=== PATIENT | female | born 2000 | race American Indian/Alaskan Native ===

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

== ENCOUNTER 2019-01-31 23:18 | Emergency (ER) | payer MEDICAID ==
[2019-02-01 00:27] LABS: Amorphous Crystals,Urine 1+; Bilirubin,Urine NEG (Negative); Blood,Urine NEG (Negative); Color,Urine Yellow (Yellow); Mucus,Urine 1+ /HPF; Protein,Urine <15 mg/dL mg/dL (Negative)
[2019-02-01 00:29] LABS: RBC,Urine < 1.0 /HPF (0.0-6.0)
[2019-02-01 00:51] LABS: Basophils # (Auto) 0.1 K/mm3 (0.0-0.1); Basophils % (Auto) 0.8 % (0.0-1.8); Eosinophils # (Auto) 0.6 K/mm3 (0.0-0.4); Eosinophils % (Auto) 7.3 % (0.0-4.3); Hemoglobin 12.2 gm/dl (10.1-14.3); Lymphocytes # (Auto) 2.1 K/mm3 (1.2-5.4); Lymphocytes % (Auto) 26.2 % (13.4-35.0); Mean Corpuscular HGB Conc 33 % (30-34); Mean Corpuscular Volume 85 fl (79-97); Monocytes # (Auto) 0.4 K/mm3 (0.0-0.8); Monocytes % (Auto) 5.4 % (0.0-7.3); Platelet Count 170 K/mm3 (140-440); Red Blood Count 4.35 M/mm3 (3.65-5.03); Red Cell Distribution Width 17.2 % (13.2-15.2)
[2019-02-01 01:06] LABS: Alanine Aminotransferase 13 units/L (7-56); Albumin 4.1 g/dL (3.9-5); BUN/Creatinine Ratio 30; Blood Urea Nitrogen 18 mg/dL (7-17); Calcium 9.1 mg/dL (8.4-10.2); Hemolysis Index 41
--- NOTE | 2019-02-01 01:45 | Emergency Department Report ---
ED Female HPI - General Chief complaint: Abdominal Pain Stated complaint: ABD PAIN/DEHYDRATION Time Seen by Provider: 02/01/19 01:24 Source: patient Mode of arrival: Ambulatory Limitations: No Limitations - History of Present Illness Initial comments: Patient is a 18-year-old female who presents to the emergency room with complaints of suprapubic abdominal pain that began yesterday. she has associated urinary frequency and nausea. she denies any dysuria, vomiting, diarrhea, fever. She had a normal bowel movement today. Patient does not report any vaginal discharge or vaginal complaints. LNMP January 17. Denies any past medical history or allergies to medications. - Related Data Previous Rx's Medication Instructions Recorded Last Taken Type Ondansetron [Zofran Odt] 4 mg PO Q8HR PRN #10 tab.rapdis 02/01/19 Unknown Rx Phenazopyridine [Pyridium] 200 mg PO BID PRN #10 tab 02/01/19 Unknown Rx cephALEXin [Keflex] 500 mg PO BID 7 Days #14 cap 02/01/19 Unknown Rx Allergies Allergy/AdvReac Type Severity Reaction Status Date / Time No Known Allergies Allergy Verified 08/26/18 10:36 ED Review of Systems ROS: Stated complaint: ABD PAIN/DEHYDRATION Other details as noted in HPI Comment: All other systems reviewed and negative ED Past Medical Hx - Past Medical History Previous Medical History?: No Hx Hypertension: No Hx Diabetes: No Hx Deep Vein Thrombosis: No Hx Renal Disease: No Hx Sickle Cell Disease: No Hx Seizures: No Hx Asthma: No Hx HIV: No - Surgical History Past Surgical History?: No - Social History Smoking Status: Current Every Day Smoker Substance Use Type: None - Medications Home Medications: Home Medications Medication Instructions Recorded Confirmed Last Taken Type Ondansetron [Zofran Odt] 4 mg PO Q8HR PRN #10 tab.rapdis 02/01/19 Unknown Rx Phenazopyridine [Pyridium] 200 mg PO BID PRN #10 tab 02/01/19 Unknown Rx cephALEXin [Keflex] 500 mg PO BID 7 Days #14 cap 02/01/19 Unknown Rx ED Physical Exam - General Limitations: No Limitations General appearance: alert, in no apparent distress - Head Head exam: Present: atraumatic, normocephalic - Eye Eye exam: Present: normal appearance - ENT ENT exam: Present: mucous membranes moist - Respiratory Respiratory exam: Present: normal lung sounds bilaterally. Absent: respiratory distress, wheezes, rales, rhonchi, stridor, chest wall tenderness, accessory muscle use, decreased breath sounds, prolonged expiratory - Cardiovascular Cardiovascular Exam: Present: regular rate, normal rhythm, normal heart sounds. Absent: systolic murmur, diastolic murmur, rubs, gallop - GI/Abdominal GI/Abdominal exam: Present: soft, normal bowel sounds. Absent: distended, tenderness, guarding, rebound, rigid - Back Exam Back exam: Absent: CVA tenderness (R), CVA tenderness (L) - Neurological Exam Neurological exam: Present: alert, oriented X3 - Psychiatric Psychiatric exam: Present: normal affect, normal mood - Skin Skin exam: Present: warm, dry, intact ED Course Vital Signs 02/01/19 02/01/19 02:39 02:41 Temperature 98.1 F 98.1 F Pulse Rate 90 90 Respiratory 16 16 Rate Blood Pressure 110/74 114/74 [Right] O2 Sat by Pulse 99 99 Oximetry ED Medical Decision Making - Lab Data Result diagrams: 02/01/19 00:05 02/01/19 00:05 Lab Results 02/01/19 02/01/19 02/01/19 Range/Units 00:05 00:05 00:05 WBC 8.0 (4.5-11.0) K/mm3 RBC 4.35 (3.65-5.03) M/mm3 Hgb 12.2 (10.1-14.3) gm/dl Hct 37.0 (30.3-42.9) % MCV 85 (79-97) fl MCH 28 (28-32) pg MCHC 33 (30-34) % RDW 17.2 H (13.2-15.2) % Plt Count 170 (140-440) K/mm3 Lymph % (Auto) 26.2 (13.4-35.0) % [place] % (Auto) 5.4 (0.0-7.3) % Eos % (Auto) 7.3 H (0.0-4.3) % Baso % (Auto) 0.8 (0.0-1.8) % Lymph # 2.1 (1.2-5.4) K/mm3 [place] # 0.4 (0.0-0.8) K/mm3 Eos # 0.6 H (0.0-0.4) K/mm3 Baso # 0.1 (0.0-0.1) K/mm3 Seg Neutrophils % 60.3 (40.0-70.0) % Seg Neutrophils # 4.8 (1.8-7.7) K/mm3 Sodium 140 (137-145) mmol/L Potassium 4.1 (3.6-5.0) mmol/L Chloride 104.3 (98-107) mmol/L Carbon Dioxide 25 (22-30) mmol/L Anion Gap 15 mmol/L BUN 18 H (7-17) mg/dL Creatinine 0.6 L (0.7-1.2) mg/dL Estimated GFR > 60 ml/min BUN/Creatinine Ratio 30 % Glucose 97 (65-100) mg/dL Calcium 9.1 (8.4-10.2) mg/dL Total Bilirubin 0.40 (0.1-1.2) mg/dL AST 20 (5-40) units/L ALT 13 (7-56) units/L Alkaline Phosphatase 47 (35-129) units/L Total Protein 6.4 (6.3-8.2) g/dL Albumin 4.1 (3.9-5) g/dL Albumin/Globulin Ratio 1.8 % HCG, Qual (Negative) Urine Color Yellow (Yellow) Urine Turbidity Cloudy (Clear) Urine pH 8.0 H (5.0-7.0) Ur Specific [place] 1.024 (1.003-1.030) Urine Protein <15 mg/dl (Negative) mg/dL Urine Glucose (UA) Neg (Negative) mg/dL Urine Ketones Neg (Negative) mg/dL Urine Blood Neg (Negative) Urine Nitrite Neg (Negative) Urine Bilirubin Neg (Negative) Urine Urobilinogen 2.0 (<2.0) mg/dL Ur Leukocyte Esterase Mod (Negative) Urine WBC (Auto) 39.0 H (0.0-6.0) /HPF Urine RBC (Auto) < 1.0 (0.0-6.0) /HPF U Epithel Cells (Auto) 5.0 (0-13.0) /HPF Amorphous Crystals 1+ Urine Mucus 1+ /HPF Urine Yeast (Budding) 1+ /HPF 02/01/19 Range/Units 00:05 WBC (4.5-11.0) K/mm3 RBC (3.65-5.03) M/mm3 Hgb (10.1-14.3) gm/dl Hct (30.3-42.9) % MCV (79-97) fl MCH (28-32) pg MCHC (30-34) % RDW (13.2-15.2) % Plt Count (140-440) K/mm3 Lymph % (Auto) (13.4-35.0) % [place] % (Auto) (0.0-7.3) % Eos % (Auto) (0.0-4.3) % Baso % (Auto) (0.0-1.8) % Lymph # (1.2-5.4) K/mm3 [place] # (0.0-0.8) K/mm3 Eos # (0.0-0.4) K/mm3 Baso # (0.0-0.1) K/mm3 Seg Neutrophils % (40.0-70.0) % Seg Neutrophils # (1.8-7.7) K/mm3 Sodium (137-145) mmol/L Potassium (3.6-5.0) mmol/L Chloride (98-107) mmol/L Carbon Dioxide (22-30) mmol/L Anion Gap mmol/L BUN (7-17) mg/dL Creatinine (0.7-1.2) mg/dL Estimated GFR ml/min BUN/Creatinine Ratio % Glucose (65-100) mg/dL Calcium (8.4-10.2) mg/dL Total Bilirubin (0.1-1.2) mg/dL AST (5-40) units/L ALT (7-56) units/L Alkaline Phosphatase (35-129) units/L Total Protein (6.3-8.2) g/dL Albumin (3.9-5) g/dL Albumin/Globulin Ratio % HCG, Qual Negative (Negative) Urine Color (Yellow) Urine Turbidity (Clear) Urine pH (5.0-7.0) Ur Specific [place] (1.003-1.030) Urine Protein (Negative) mg/dL Urine Glucose (UA) (Negative) mg/dL Urine Ketones (Negative) mg/dL Urine Blood (Negative) Urine Nitrite (Negative) Urine Bilirubin (Negative) Urine Urobilinogen (<2.0) mg/dL Ur Leukocyte Esterase (Negative) Urine WBC (Auto) (0.0-6.0) /HPF Urine RBC (Auto) (0.0-6.0) /HPF U Epithel Cells (Auto) (0-13.0) /HPF Amorphous Crystals Urine Mucus /HPF Urine Yeast (Budding) /HPF - Medical Decision Making Patient is a 18-year-old female who presents to the emergency room with complaints of suprapubic abdominal pain that began yesterday. she has associated urinary frequency and nausea. she denies any dysuria, vomiting, diarrhea, fever. She had a normal bowel movement today. Patient does not report any vaginal discharge or vaginal complaints. LNMP January 17. Denies any past medical history or allergies to medications. no abd tenderness on exam. pt is tolerating PO intake. pt is afebrile. labs WNL. UA shows evidence of UTI. pt given prescription for abx, pyridium, and zofran. advised pt to drink plenty of water. take medication as prescribed. follow up with a primary care doctor in the next 2-3 days. return to the emergency room for any new or worsening symptoms. Critical care attestation.: If time is entered above; I have spent that time in minutes in the direct care of this critically ill patient, excluding procedure time. ED Disposition Clinical Impression: Suprapubic abdominal pain UTI (urinary tract infection) Qualifiers: Urinary tract infection type: acute cystitis Hematuria presence: without hematuria Qualified Code(s): N30.00 - Acute cystitis without hematuria Disposition: TO HOME OR SELFCARE Is pt being admited?: No Does the pt Need Aspirin: No Condition: Stable Instructions: Urinary Tract Infection in Women (ED) Additional Instructions: drink plenty of water. take medication as prescribed. follow up with a primary care doctor in the next 2-3 days. return to the emergency room for any new or worsening symptoms. Prescriptions: cephALEXin [Keflex] 500 mg PO BID 7 Days #14 cap Phenazopyridine [Pyridium] 200 mg PO BID PRN #10 tab PRN Reason: pain Ondansetron [Zofran Odt] 4 mg PO Q8HR PRN #10 tab.rapdis PRN Reason: Nausea Referrals: [facility] [Provider Group] - 2-3 Days [facility] [Outside] - 2-3 Days [facility] [Outside] - 2-3 Days Forms: Work/School Release Form(ED) Time of Disposition: 01:45 Print Language: SETSWANA
[2019-02-01 02:42] VITALS: BP 114/74
== END 2019-02-01 02:40 | disposition home or self-care (01) ==
LOC: ED 23:18
DX: N39.0 Urinary tract infection, site not specified (principal); F17.200 Nicotine dependence, unspecified, uncomplicated; Z79.899 Other long term (current) drug therapy
CPT/HCPCS: 36415; 80053; 81001; 84703; 85025; 87086; 99283

== ENCOUNTER 2019-03-22 18:09 | Emergency (ER) | payer MEDICAID ==
[2019-03-22 19:01] VITALS: BP 100/73
[2019-03-22] MEDS ORDERED: TYLENOL #3 PO ONE (21:19)
[2019-03-22] MEDS ORDERED: IBUPROFEN PO ONE (21:19)
--- NOTE | 2019-03-22 21:24 | Emergency Department Report ---
ED General Adult HPI - General Chief complaint: Dental/Oral Stated complaint: TONGUE PAIN Source: patient Mode of arrival: Ambulatory Limitations: No Limitations - History of Present Illness Initial comments: Patient is a 18-year-old female with no past medical history presents to the ED with complaint of acute onset painful abrasion of the tongue and mouth for 2 days after she accidentally removed tongue piercing which ended up passing abrasion of the frenulum of the tongue. Chin denies fever, chills, nausea, vomiting, headache, chest pain, shortness of breath or sore throat. MD Complaint: intraoral abrasion and pain; tongue abrasion -: Sudden, days(s) (2) Location: mouth Radiation: non-radiation Severity scale (0 -10): 6 Quality: aching, sharp Consistency: constant Improves with: none Worsens with: none Associated Symptoms: denies other symptoms. denies: confusion, chest pain, cough, diaphoresis, fever/chills, headaches, loss of appetite, malaise, nausea/vomiting, rash, seizure, shortness of breath, syncope Treatments Prior to Arrival: none - Related Data Previous Rx's Medication Instructions Recorded Last Taken Type Ondansetron [Zofran Odt] 4 mg PO Q8HR PRN #10 tab.rapdis 02/01/19 Unknown Rx Phenazopyridine [Pyridium] 200 mg PO BID PRN #10 tab 02/01/19 Unknown Rx Benzonatate [Tessalon Perles] 100 mg PO Q8HR PRN #20 capsule 02/08/19 Unknown Rx Naproxen [Naprosyn] 500 mg PO BID #20 tablet 02/08/19 Unknown Rx Ondansetron [Zofran Odt] 4 mg PO Q8HR PRN #20 tab.rapdis 02/08/19 Unknown Rx Ibuprofen [Motrin] 600 mg PO Q8H PRN #20 tablet 03/22/19 Unknown Rx cephALEXin [Keflex] 500 mg PO Q8HR #30 cap 03/22/19 Unknown Rx Allergies Allergy/AdvReac Type Severity Reaction Status Date / Time No Known Allergies Allergy Verified 02/08/19 18:49 ED Review of Systems ROS: Stated complaint: TONGUE PAIN Other details as noted in HPI Constitutional: denies: chills, fever Eyes: denies: eye pain, eye discharge, vision change ENT: other (tongue pain due to abrasions). denies: ear pain, throat pain Respiratory: denies: cough, shortness of breath, wheezing Cardiovascular: denies: chest pain, palpitations Endocrine: no symptoms reported Gastrointestinal: denies: abdominal pain, nausea, diarrhea Genitourinary: denies: urgency, dysuria, discharge Musculoskeletal: denies: back pain, joint swelling, arthralgia Skin: denies: rash, lesions Neurological: denies: headache, weakness, paresthesias Psychiatric: denies: anxiety, depression Hematological/Lymphatic: denies: easy bleeding, easy bruising ED Past Medical Hx - Past Medical History Hx Hypertension: No Hx Diabetes: No Hx Deep Vein Thrombosis: No Hx Renal Disease: No Hx Sickle Cell Disease: No Hx Seizures: No Hx Asthma: No Hx HIV: No - Social History Smoking Status: Current Every Day Smoker Substance Use Type: None - Medications Home Medications: Home Medications Medication Instructions Recorded Confirmed Last Taken Type Ondansetron [Zofran Odt] 4 mg PO Q8HR PRN #10 tab.rapdis 02/01/19 Unknown Rx Phenazopyridine [Pyridium] 200 mg PO BID PRN #10 tab 02/01/19 Unknown Rx Benzonatate [Tessalon Perles] 100 mg PO Q8HR PRN #20 capsule 02/08/19 Unknown Rx Naproxen [Naprosyn] 500 mg PO BID #20 tablet 02/08/19 Unknown Rx Ondansetron [Zofran Odt] 4 mg PO Q8HR PRN #20 tab.rapdis 02/08/19 Unknown Rx Ibuprofen [Motrin] 600 mg PO Q8H PRN #20 tablet 03/22/19 Unknown Rx cephALEXin [Keflex] 500 mg PO Q8HR #30 cap 03/22/19 Unknown Rx ED Physical Exam - General Limitations: No Limitations General appearance: alert, in no apparent distress - Head Head exam: Present: atraumatic, normocephalic, normal inspection - Eye Eye exam: Present: normal appearance, PERRL, EOMI Pupils: Present: normal accommodation - ENT ENT exam: Present: mucous membranes moist, TM's normal bilaterally, normal external ear exam, other (Moderate abrasion wounds on the tongue frenulum with moderate tenderness) - Neck Neck exam: Present: normal inspection, full ROM. Absent: tenderness, lymphadenopathy, thyromegaly - Respiratory Respiratory exam: Present: normal lung sounds bilaterally. Absent: respiratory distress, wheezes, rales, chest wall tenderness, prolonged expiratory - Cardiovascular Cardiovascular Exam: Present: regular rate, normal rhythm, normal heart sounds. Absent: systolic murmur, diastolic murmur, rubs, gallop - GI/Abdominal GI/Abdominal exam: Present: soft, normal bowel sounds. Absent: tenderness, guarding, hyperactive bowel sounds, hypoactive bowel sounds - Extremities Exam Extremities exam: Present: normal inspection, full ROM, normal capillary refill - Back Exam Back exam: Present: normal inspection, full ROM. Absent: CVA tenderness (L), muscle spasm, paraspinal tenderness - Neurological Exam Neurological exam: Present: alert, oriented X3, CN II-XII intact, normal gait, r eflexes normal - Psychiatric Psychiatric exam: Present: normal affect, normal mood - Skin Skin exam: Present: warm, dry, intact, normal color. Absent: rash ED Course Vital Signs 03/22/19 18:59 Temperature 98.6 F Pulse Rate 99 H Respiratory 18 Rate Blood Pressure 100/73 O2 Sat by Pulse 100 Oximetry - Reevaluation(s) Reevaluation #1: 03/22/19 21:28 This is a 18-year-old female who presented to the ED with painful abrasions of the tongue and mouth for 2 days. In the ED: Patient is alert and oriented 3 and is not in distress. Patient was treated for pain in the ED and discharged home on pain medications and prophylactic antibiotics for suspected intraoral infections. Patient was advised to follow-up with primary care physician in 7- 10 days for reevaluation or return to the ED immediately if symptoms get worse. ED Medical Decision Making - Medical Decision Making This is a 18-year-old female who presented to the ED with painful abrasions of the tongue and mouth for 2 days. In the ED: Patient is alert and oriented 3 and is not in distress. Patient was treated for pain in the ED and discharged home on pain medications and prophylactic antibiotics for suspected intraoral infections. Patient was advised to follow-up with primary care physician in 7- 10 days for reevaluation or return to the ED immediately if symptoms get worse. - Differential Diagnosis Intraoral abrasions; infected intraoral wounds Critical care attestation.: If time is entered above; I have spent that time in minutes in the direct care of this critically ill patient, excluding procedure time. ED Disposition Clinical Impression: Abrasion of intraoral region Qualifiers: Encounter type: initial encounter Qualified Code(s): S00.512A - Abrasion of oral cavity, initial encounter Abrasion of tongue Qualifiers: Encounter type: initial encounter Qualified Code(s): S00.512A - Abrasion of oral cavity, initial encounter Disposition: TO HOME OR SELFCARE Is pt being admited?: No Does the pt Need Aspirin: No Condition: Stable Instructions: Abrasion (ED) Additional Instructions: Take medication with food, drink plenty of fluids and follow up with your primary care physician in 7-10 days for reevaluation. Return to the ED immediately if symptoms get worse. Prescriptions: cephALEXin [Keflex] 500 mg PO Q8HR #30 cap Ibuprofen [Motrin] 600 mg PO Q8H PRN #20 tablet PRN Reason: Pain Referrals: PRIMARY CARE, [Primary Care Provider] - 3-5 Days Time of Disposition: 21:25 Print Language: TUVALUAN
== END 2019-03-22 21:40 | disposition home or self-care (01) ==
LOC: ED 18:09
DX: S00.512A Abrasion of oral cavity, initial encounter (principal); F17.200 Nicotine dependence, unspecified, uncomplicated; Z79.899 Other long term (current) drug therapy; X58.XXXA Exposure to other specified factors, initial encounter; Y93.89 Activity, other specified; Y92.89 Other specified places as the place of occurrence of the external cause; Y99.8 Other external cause status

== ENCOUNTER 2019-07-17 15:10 | Emergency (ER) | payer MEDICAID ==
--- NOTE | 2019-07-17 15:48 | Event Note ---
ED Screening Note Date of service: 07/17/19 Time: 15:46 ED Screening Note: Pt complains of vaginal discharge 2-3 months with lower abdominal pain denies vaginal bleeding This initial assessment/diagnostic orders/clinical plan/treatment(s) is/are subject to change based on patients health status, clinical progression and re- assessment by fellow clinical providers in the ED. Further treatment and workup at subsequent clinical providers discretion. Patient/guardian urged not to elope from the ED as their condition may be serious if not clinically assessed and managed. Initial orders include: urine
[2019-07-17 16:10] LABS: Bilirubin,Urine NEG (Negative); Blood,Urine NEG (Negative); Color,Urine Yellow (Yellow); Mucus,Urine 3+ /HPF; Protein,Urine <15 mg/dL mg/dL (Negative); Urobilinogen,Urine < 2.0 mg/dL (<2.0)
[2019-07-17 16:12] LABS: HCG Qualitative,Urine Positive (Negative)
[2019-07-17] MEDS ORDERED: ACETAMINOPHEN 500 MG TAB PO ONE (19:44)
--- NOTE | 2019-07-17 20:39 | Ultrasound Report ---
ULTRASOUND OBSTETRIC INDICATION / CLINICAL INFORMATION: Pelvic pain, vaginal bleeding. Clinical Gestational Age (GA): 5 weeks 6 days by last menstrual period TECHNIQUE: Transabdominal and Transvaginal. COMPARISON: None available. FINDINGS: GESTATIONAL SAC: Well-defined oval shape and intrauterine in location. Mean gestational sac diameter is 8.6 mm, corresponding to 5 weeks 5 days gestational age. YOLK SAC: Not identified. EMBRYO/FETUS: Not identified. ADNEXA: No significant abnormality. FREE FLUID: None. ADDITIONAL FINDINGS: None. IMPRESSION: SPECT intrauterine gestational sac with size corresponding to ultrasound age 5 weeks 5 days. No pole or yolk sac is identified, but this may be due to early stage of . Continued close cli nical follow-up is recommended, with serial monitoring of beta hCG and repeat ultrasound as indicated . Signer Name: Keith Brothers MD Signed: 07/17/2019 8:35 PM Workstation Name: [id number]
--- NOTE | 2019-07-17 20:59 | Emergency Department Report ---
ED Female HPI - General Chief complaint: Vaginal Bleeding Stated complaint: VAG DISCHARGE Time Seen by Provider: 07/17/19 15:46 Source: patient Mode of arrival: Ambulatory Limitations: No Limitations - History of Present Illness Initial comments: Patient is a A0 19-year-old -T[place] female who presented to the ED with complaint of suprapubic pressure and vaginal discharge for 2 weeks. Patient also states that she has not had her menstrual cycle for 2 months. Patient denies fever, chills, cough, vaginal bleeding, dysuria, urinary stanley quency and urgency, low back pain, diarrhea, nausea and vomiting or dyspareunia. MD Complaint: vaginal discharge, pelvic pain, other (no menses for 2 months) -: Gradual, week(s) (2) Location: suprapubic, other (vaginal) Radiation: non-radiating Severity: moderate Severity scale (0 -10): 5 Quality: cramping, aching Consistency: constant Improves with: none Worsens with: movement Are you Now?: No Last Menstrual Period: 04/26/19 EDC: 01/31/20 Associated Symptoms: denies other symptoms, vaginal discharge, abdominal pain. denies: vaginal bleeding, nausea/vomiting, fever/chills, headaches, loss of appetite, dysuria, hematuria, rash, seizure, shortness of breath, syncope, weakness, other - Related Data Sexually active: Yes : 3 Para: 3 A: 0 Previous Rx's Medication Instructions Recorded Last Taken Type Ondansetron [Zofran Odt] 4 mg PO Q8HR PRN #10 tab.rapdis 02/01/19 Unknown Rx Phenazopyridine [Pyridium] 200 mg PO BID PRN #10 tab 02/01/19 Unknown Rx Benzonatate [Tessalon Perles] 100 mg PO Q8HR PRN #20 capsule 02/08/19 Unknown Rx Naproxen [Naprosyn] 500 mg PO BID #20 tablet 02/08/19 Unknown Rx Ondansetron [Zofran Odt] 4 mg PO Q8HR PRN #20 tab.rapdis 02/08/19 Unknown Rx Ibuprofen [Motrin] 600 mg PO Q8H PRN #20 tablet 03/22/19 Unknown Rx cephALEXin [Keflex] 500 mg PO Q8HR #30 cap 03/22/19 Unknown Rx Allergies Allergy/AdvReac Type Severity Reaction Status Date / Time No Known Allergies Allergy Verified 02/08/19 18:49 ED Review of Systems ROS: Stated complaint: VAG DISCHARGE Other details as noted in HPI Constitutional: denies: chills, fever Eyes: denies: eye pain, eye discharge, vision change ENT: denies: ear pain, throat pain Respiratory: denies: cough, shortness of breath, wheezing Cardiovascular: denies: chest pain, palpitations Endocrine: no symptoms reported Gastrointestinal: abdominal pain (suprapubic pressure). denies: nausea, diarrhea Genitourinary: discharge, abnormal menses (No menstrual cycle for 2 months). denies: urgency, dysuria Musculoskeletal: denies: back pain, joint swelling, arthralgia Skin: denies: rash, lesions Neurological: denies: headache, weakness, paresthesias Psychiatric: denies: anxiety, depression Hematological/Lymphatic: denies: easy bleeding, easy bruising ED Past Medical Hx - Past Medical History Hx Hypertension: No Hx Diabetes: No Hx Deep Vein Thrombosis: No Hx Renal Disease: No Hx Sickle Cell Disease: No Hx Seizures: No Hx Asthma: No Hx HIV: No - Social History Smoking Status: Current Every Day Smoker Substance Use Type: None - Medications Home Medications: Home Medications Medication Instructions Recorded Confirmed Last Taken Type Ondansetron [Zofran Odt] 4 mg PO Q8HR PRN #10 tab.rapdis 02/01/19 Unknown Rx Phenazopyridine [Pyridium] 200 mg PO BID PRN #10 tab 02/01/19 Unknown Rx Benzonatate [Tessalon Perles] 100 mg PO Q8HR PRN #20 capsule 02/08/19 Unknown Rx Naproxen [Naprosyn] 500 mg PO BID #20 tablet 02/08/19 Unknown Rx Ondansetron [Zofran Odt] 4 mg PO Q8HR PRN #20 tab.rapdis 02/08/19 Unknown Rx Ibuprofen [Motrin] 600 mg PO Q8H PRN #20 tablet 03/22/19 Unknown Rx cephALEXin [Keflex] 500 mg PO Q8HR #30 cap 03/22/19 Unknown Rx ED Physical Exam - General Limitations: No Limitations General appearance: alert, in no apparent distress - Head Head exam: Present: atraumatic, normocephalic, normal inspection - Eye Eye exam: Present: normal appearance, PERRL, EOMI Pupils: Present: normal accommodation - ENT ENT exam: Present: normal exam, normal orophraynx, mucous membranes moist, TM's normal bilaterally, normal external ear exam - Neck Neck exam: Present: normal inspection, full ROM - Respiratory Respiratory exam: Present: normal lung sounds bilaterally. Absent: respiratory distress, wheezes, rales, stridor, chest wall tenderness, accessory muscle use, decreased breath sounds - Cardiovascular Cardiovascular Exam: Present: regular rate, normal rhythm, normal heart sounds. Absent: systolic murmur, diastolic murmur, rubs, gallop - GI/Abdominal GI/Abdominal exam: Present: soft, normal bowel sounds. Absent: tenderness, guarding, rebound, hyperactive bowel sounds, hypoactive bowel sounds, organomegaly - Extremities Exam Extremities exam: Present: normal inspection, full ROM, normal capillary refill - Back Exam Back exam: Present: normal inspection, full ROM. Absent: tenderness, CVA tenderness (R), CVA tenderness (L), muscle spasm, paraspinal tenderness, vertebral tenderness - Neurological Exam Neurological exam: Present: alert, oriented X3, CN II-XII intact, normal gait, reflexes normal - Psychiatric Psychiatric exam: Present: normal affect, normal mood - Skin Skin exam: Present: warm, dry, intact, normal color. Absent: rash ED Course Vital Signs 07/17/19 07/17/19 15:45 20:19 Temperature 98.5 F Pulse Rate 81 Respiratory 20 16 Rate Blood Pressure 114/69 O2 Sat by Pulse 97 Oximetry ED Medical Decision Making - Radiology Data Radiology results: report reviewed, image reviewed Findings [address] [address] Ultrasound Report Signed Patient: BLAISE PATTERSON MR#: [id number] : 2000 Acct:[id number] Age/Sex: 19 / F ADM Date: 07/17/19 Loc: ED Attending Dr: Ordering Physician: HANH CHAPARRO Date of Service: 07/17/19 Procedure(s): US OB transvaginal Accession Number(s): [id number] cc: HANH CHAPARRO ULTRASOUND OBSTETRIC INDICATION / CLINICAL INFORMATION: Pelvic pain, vaginal bleeding. Clinical Gestational Age (GA): 5 weeks 6 days by last menstrual period TECHNIQUE: Transabdominal and Transvaginal. COMPARISON: None available. FINDINGS: GESTATIONAL SAC: Well-defined oval shape and intrauterine in location. Mean gestational sac diameter is 8.6 mm, corresponding to 5 weeks 5 days gestational age. YOLK SAC: Not identified. EMBRYO/FETUS: Not identified. ADNEXA: No significant abnormality. FREE FLUID: None. ADDITIONAL FINDINGS: None. IMPRESSION: SPECT intrauterine gestational sac with size corresponding to ultrasound age 5 weeks 5 days. No pole or yolk sac is identified, but this may be due to early stage of . Continued close clinical follow-up is recommended, with serial monitoring of beta hCG and repeat ultrasound as indicated. Signer Name: Keith Brothers MD Signed: 07/17/2019 8:35 PM Workstation Name: [id number] Transcribed By: ED Dictated By: Keith Brothers MD Electronically Authenticated By: Keith Brothers MD Signed Date/Time: 07/17/192034 DD/ 31 TD/TT: - Medical Decision Making This is a A0 19-year-old -T[place] female who presented to the ED with persistent vaginal discharge, suprapubic pressure and discomfort for 2 weeks, and having normal menstrual cycle for 2 months. In the ED, patient is alert and oriented 3 and is not in distress. Urinalysis is unremarkable except for a positive urine hCG test. Labs were drawn including hCG Quant and transvaginal ultrasound also ordered. Patient was treated for pain in the ED. The transvaginal ultrasound shows a single live IUP of approximately 5 weeks and 5 days' gestation, and no pole or the [place] identified possibly because the is still too early. Patient decided to sign out AMA prior to commencement of the lab tests and as soon as she came from the ultrasound. - Differential Diagnosis Early ; Abdominal pain in ; UTI; Bacterial vaginosis Critical care attestation.: If time is entered above; I have spent that time in minutes in the direct care of this critically ill patient, excluding procedure time. ED Disposition Clinical Impression: Early stage of Abdominal pain in Qualifiers: Trimester: first trimester Qualified Code(s): O26.891 - Other specified related conditions, first trimester; R10.9 - Unspecified abdominal pain Disposition: DC-07 LEFT AGAINST MED ADVICE Is pt being admited?: No Does the pt Need Aspirin: No Condition: Stable Instructions: Abdominal Pain in (ED) Referrals: AUREA SOMMERS MD [Primary Care Provider] - 3-5 Days Time of Disposition: 20:30 Print Language: MOHAWK
[2019-07-17 23:14] VITALS: BP 120/78
== END 2019-07-17 20:37 | disposition left against medical advice (07) ==
LOC: ED 15:10
DX: O26.891 Other specified pregnancy related conditions, first trimester (principal); N89.8 Other specified noninflammatory disorders of vagina; O99.331 Smoking (tobacco) complicating pregnancy, first trimester; Z79.899 Other long term (current) drug therapy; Z3A.01 Less than 8 weeks gestation of pregnancy
CPT/HCPCS: 76801; 76817; 81001; 81025

== ENCOUNTER 2019-07-27 20:36 | Emergency (ER) | payer MEDICAID ==
[2019-07-28 01:59] LABS: Bacteria,Urine 1+ /HPF (Negative); Bilirubin,Urine NEG (Negative); Blood,Urine NEG (Negative); Color,Urine Yellow (Yellow); Mucus,Urine 3+ /HPF; Protein,Urine <15 mg/dL mg/dL (Negative); Urobilinogen,Urine < 2.0 mg/dL (<2.0)
[2019-07-28] MEDS ORDERED: ONDANSETRON 4 MG/2 ML INJ IV ONE (02:52)
[2019-07-28] MEDS ORDERED: ACETAMINOPHEN 500 MG TAB PO ONE (02:52)
[2019-07-28] MEDS ORDERED: FAMOTIDINE 20 MG/2 ML INJ IV ONE (02:52)
[2019-07-28] MEDS ORDERED: SODIUM CHLORIDE 0.9% 1000 ML 1,000 ML IV ONE (02:53)
[2019-07-28 03:41] LABS: Basophils % (Auto) 0.3 % (0.0-1.8); Eosinophils # (Auto) 0.1 K/mm3 (0.0-0.4); Eosinophils % (Auto) 0.8 % (0.0-4.3); Hematocrit 38.7 % (30.3-42.9); Hemoglobin 12.8 gm/dl (10.1-14.3); Lymphocytes # (Auto) 1.5 K/mm3 (1.2-5.4); Lymphocytes % (Auto) 13.3 % (13.4-35.0); Mean Corpuscular HGB Conc 33 % (30-34); Mean Corpuscular Volume 86 fl (79-97); Monocytes # (Auto) 0.5 K/mm3 (0.0-0.8); Monocytes % (Auto) 4.7 % (0.0-7.3); Platelet Count 167 K/mm3 (140-440); Red Blood Count 4.49 M/mm3 (3.65-5.03); Red Cell Distribution Width 15.7 % (13.2-15.2)
[2019-07-28 04:19] LABS: Alanine Aminotransferase 10 units/L (7-56); Albumin 4.4 g/dL (3.9-5); BUN/Creatinine Ratio 22; Blood Urea Nitrogen 11 mg/dL (7-17); Calcium 9.3 mg/dL (8.4-10.2); Hemolysis Index 4
[2019-07-28 04:58] VITALS: BP 98/52
--- NOTE | 2019-07-28 05:25 | Ultrasound Report ---
Transabdominal and transvaginal OB pelvic ultrasound INDICATION / CLINICAL INFORMATION: Abdominal/pelvic pain and vomiting. COMPARISON: None available. FINDINGS: Transabdominal: The uterus measures 10.4 6.0 x 6.5 cm. There is a single intrauterine with an estimated gestational age of 6 weeks 3 days by crown-rump length. The heart rate is 120 bpm. A yolk sac is present. The right ovary measures 2.4 x 1.4 x 2.3 cm and the left ovary 3.4 x 2.2 x 2. 8 cm. There is a 2.2 cm corpus luteal cyst in the left ovary. There is normal blood flow to both ovar ies on Doppler exam. Transvaginal: The estimated gestational age is 6 weeks 5 days by crown-rump length. The heart r ate is 116 bpm. A yolk sac is present. There is a small area of subchorionic hemorrhage.. The right o vary measures 3.7 x 1.9 x 2.4 cm. The left ovary measures 3.3 x 2.6 x 3.3 cm and contains a 3.2 cm th ick-walled cyst. There is normal blood flow to both ovaries on Doppler exam. A trace amount of free f luid is present in the cul-de-sac. IMPRESSION: 1. Single viable 6 week 5 day intrauterine . Small subchorionic hemorrhage. 2. 3.2 cm corpus luteal cyst in the left ovary. Signer Name: Vivek Riggs MD Signed: 07/28/2019 5:21 AM Workstation Name: [id number]
--- NOTE | 2019-07-28 05:50 | Emergency Department Report ---
ED Abdominal Pain HPI - General Chief Complaint: Abdominal Pain Stated Complaint: VOMITTING Source: patient, EMS Mode of arrival: Ambulatory Limitations: No Limitations - History of Present Illness Initial Comments: Patient is a A0 19-year-old -[place]yr[place] female who is approximately 6 weeks gestation who presents to the ED with complaint of acute onset persistent diffuse abdominal pain with intractable nausea and vomiting for the last 1 week, worse in the last 2 days. Patient states that she has no been able to keep anything down this patient in the last 2 days because of intractable nausea and vomiting. Patient denies vaginal bleeding, vaginal discharge, dysuria, urinary frequency and urgency, dizziness, chest pain, shortness of breath, diarrhea, fever, chills, cough, sore throat, nasal and sinus congestion, hematemesis or low back pain. MD Complaint: abdominal pain, other (nausea and vomiting) -: Sudden, week(s) (1) Location: diffuse Radiation: suprapubic Migration to: no migration Severity scale (0 -10): 4 Quality: cramping, aching Consistency: constant Improves With: nothing Worsens With: vomiting Associated Symptoms: denies other symptoms, nausea, vomiting, anorexia. denies: diarrhea, fever, constipation, dysuria, hematemesis, hematochezia, hematuria, other - Related Data Previous Rx's Medication Instructions Recorded Last Taken Type Ondansetron [Zofran Odt] 4 mg PO Q8HR PRN #10 tab.rapdis 02/01/19 Unknown Rx Phenazopyridine [Pyridium] 200 mg PO BID PRN #10 tab 02/01/19 Unknown Rx Benzonatate [Tessalon Perles] 100 mg PO Q8HR PRN #20 capsule 02/08/19 Unknown Rx Naproxen [Naprosyn] 500 mg PO BID #20 tablet 02/08/19 Unknown Rx Ondansetron [Zofran Odt] 4 mg PO Q8HR PRN #20 tab.rapdis 02/08/19 Unknown Rx Ibuprofen [Motrin] 600 mg PO Q8H PRN #20 tablet 03/22/19 Unknown Rx cephALEXin [Keflex] 500 mg PO Q8HR #30 cap 03/22/19 Unknown Rx Acetaminophen [Tylenol] 500 mg PO Q6HR PRN #30 tablet 07/28/19 Unknown Rx Famotidine [Pepcid] 20 mg PO Q12H #30 tablet 07/28/19 Unknown Rx Promethazine HCl [Phenergan SUPPOS] 25 mg RC Q6H PRN #20 supp.rect 07/28/19 Unknown Rx Promethazine [Phenergan] 25 mg PO Q6HR PRN #30 tab 07/28/19 Unknown Rx cephALEXin [Keflex] 500 mg PO Q6HR #40 capsule 07/28/19 Unknown Rx Allergies Allergy/AdvReac Type Severity Reaction Status Date / Time No Known Allergies Allergy Verified 02/08/19 18:49 ED Review of Systems ROS: Stated complaint: VOMITTING Other details as noted in HPI Constitutional: denies: chills, fever Eyes: denies: eye pain, eye discharge, vision change ENT: denies: ear pain, throat pain Respiratory: denies: cough, shortness of breath, wheezing Cardiovascular: denies: chest pain, palpitations Endocrine: no symptoms reported Gastrointestinal: abdominal pain, nausea, vomiting. denies: diarrhea Genitourinary: denies: urgency, dysuria, discharge Musculoskeletal: denies: back pain, joint swelling, arthralgia Skin: denies: rash, lesions Neurological: denies: headache, weakness, paresthesias Psychiatric: denies: anxiety, depression Hematological/Lymphatic: denies: easy bleeding, easy bruising ED Past Medical Hx - Past Medical History Previous Medical History?: No Hx Hypertension: No Hx Diabetes: No Hx Deep Vein Thrombosis: No Hx Renal Disease: No Hx Sickle Cell Disease: No Hx Seizures: No Hx Asthma: No Hx HIV: No - Surgical History Past Surgical History?: No - Social History Smoking Status: Never Smoker Substance Use Type: None - Medications Home Medications: Home Medications Medication Instructions Recorded Confirmed Last Taken Type Ondansetron [Zofran Odt] 4 mg PO Q8HR PRN #10 tab.rapdis 02/01/19 Unknown Rx Phenazopyridine [Pyridium] 200 mg PO BID PRN #10 tab 02/01/19 Unknown Rx Benzonatate [Tessalon Perles] 100 mg PO Q8HR PRN #20 capsule 02/08/19 Unknown Rx Naproxen [Naprosyn] 500 mg PO BID #20 tablet 02/08/19 Unknown Rx Ondansetron [Zofran Odt] 4 mg PO Q8HR PRN #20 tab.rapdis 02/08/19 Unknown Rx Ibuprofen [Motrin] 600 mg PO Q8H PRN #20 tablet 03/22/19 Unknown Rx cephALEXin [Keflex] 500 mg PO Q8HR #30 cap 03/22/19 Unknown Rx Acetaminophen [Tylenol] 500 mg PO Q6HR PRN #30 tablet 07/28/19 Unknown Rx Famotidine [Pepcid] 20 mg PO Q12H #30 tablet 07/28/19 Unknown Rx Promethazine HCl [Phenergan SUPPOS] 25 mg RC Q6H PRN #20 supp.rect 07/28/19 Unknown Rx Promethazine [Phenergan] 25 mg PO Q6HR PRN #30 tab 07/28/19 Unknown Rx cephALEXin [Keflex] 500 mg PO Q6HR #40 capsule 07/28/19 Unknown Rx ED Physical Exam - General Limitations: No Limitations General appearance: alert, in no apparent distress - Head Head exam: Present: atraumatic, normocephalic, normal inspection - Eye Eye exam: Present: normal appearance, PERRL, EOMI Pupils: Present: normal accommodation - ENT ENT exam: Present: normal exam, normal orophraynx, mucous membranes moist, TM's normal bilaterally, normal external ear exam - Neck Neck exam: Present: normal inspection, full ROM - Respiratory Respiratory exam: Present: normal lung sounds bilaterally. Absent: respiratory distress, wheezes, rales, rhonchi, chest wall tenderness, accessory muscle use, prolonged expiratory - Cardiovascular Cardiovascular Exam: Present: regular rate, normal rhythm, normal heart sounds. Absent: systolic murmur, diastolic murmur, rubs, gallop - GI/Abdominal GI/Abdominal exam: Present: soft, tenderness (mildly diffuse abdominal tenderness), normal bowel sounds. Absent: guarding, rebound, hyperactive bowel sounds, organomegaly, mass - Extremities Exam Extremities exam: Present: normal inspection, full ROM, normal capillary refill - Back Exam Back exam: Present: normal inspection, full ROM. Absent: tenderness, CVA tenderness (L), muscle spasm, paraspinal tenderness - Neurological Exam Neurological exam: Present: alert, oriented X3, CN II-XII intact, normal gait, reflexes normal - Psychiatric Psychiatric exam: Present: normal affect, normal mood - Skin Skin exam: Present: warm, dry, intact, normal color. Absent: rash ED Course Vital Signs 07/27/19 07/28/19 23:50 02:32 Temperature 98.7 F 98.2 F Pulse Rate 65 82 Respiratory 18 18 Rate Blood Pressure 108/59 98/52 O2 Sat by Pulse 100 100 Oximetry ED Medical Decision Making - Lab Data Result diagrams: 07/28/19 03:23 07/28/19 03:23 - Radiology Data Radiology results: report reviewed, image reviewed Findings [facility] [address] [place] [address] Ultrasound Report Signed Patient: BLAISE PATTERSON MR#: [id number] : 2000 Acct:[id number] Age/Sex: 19 / F ADM Date: 07/27/19 Loc: ED Attending Dr: Ordering Physician: HANH CHAPARRO Date of Service: 07/28/19 Procedure(s): US OB transvaginal Accession Number(s): [id number] cc: HANH CHAPARRO Transabdominal and transvaginal OB pelvic ultrasound INDICATION / CLINICAL INFORMATION: Abdominal/pelvic pain and vomiting. COMPARISON: None available. FINDINGS: Transabdominal: The uterus measures 10.4 6.0 x 6.5 cm. There is a single intrauterine with an estimated gestational age of 6 weeks 3 days by crown-rump length. The heart rate is 120 bpm. A yolk sac is present. The right ovary measures 2.4 x 1.4 x 2.3 cm and the left ovary 3.4 x 2.2 x 2.8 cm. There is a 2.2 cm corpus luteal cyst in the left ovary. There is normal blood flow to both ovaries on Doppler exam. Transvaginal: The estimated gestational age is 6 weeks 5 days by crown-rump jason gth. The heart rate is 116 bpm. A yolk sac is present. There is a small area of subchorionic h emorrhage.. The right ovary measures 3.7 x 1.9 x 2.4 cm. The left ovary measures 3.3 x 2.6 x 3.3 cm and contains a 3.2 cm thick-walled cyst. There is normal blood flow to both ovaries on Doppler exam. A trace amount of free fluid is present in the cul-de-sac. IMPRESSION: 1. Single viable 6 week 5 day intrauterine . Small subchorionic hemorrhage. 2. 3.2 cm corpus luteal cyst in the left ovary. Signer Name: Vivek Riggs MD Signed: 07/28/2019 5:21 AM Workstation Name: [id number] Transcribed By: RT Dictated By: Vivek Riggs MD Electronically Authenticated By: Vivek Riggs MD Signed Date/Time: 07/28/19520 DD/ 4 - Medical Decision Making This is a A0 19-year-old -[place] female who is approximately 6 weeks gestation and who presents to the ED with complaint of acute onset persistent diffuse abdominal pain with intractable nausea and vomiting for the last 1 week, worse in the last 2 days. In the ED, patient is alert and oriented 3 and is not in distress. Patient was treated in the ED for pain, nausea and vomiting and also given normal saline 1 liter IV bolus and antacids, and on reevaluation, patient has nausea and vomiting as well as pain resolved. The patient drinking water comfortably with no nausea or vomiting, and the abdominal pain has resolved. Lab test results were reviewed and showed leukocytosis of 11,300, mild hypokalemia of 3.4 mmol per liter, [place] [address] and urinalysis showed urinary tract infection with > 11 WBCs and moderate leukocyte esterase. Transvaginal ultrasound showed single viable 6 week 5 day intrauterine . Small subchorionic hemorrhage. It also showed a 3.2 cm corpus luteal cyst in the left ovary. Patient was discharged home on oral antibiotics, antiemetics, antacids and pain medications and advised to maintain a complete pelvic rest devoid of any physical or strenuous activity including sexual intercourse, and to follow-up with her SENIOR ANALYST physician in 5-7 days for reevaluation. Patient was advised to return to the ED immediately if symptoms get worse. - Differential Diagnosis Dehydration; Hyperemesis gravidarum, UTI; Ovarian cyst Critical care attestation.: If time is entered above; I have spent that time in minutes in the direct care of this critically ill patient, excluding procedure time. ED Disposition Clinical Impression: Hyperemesis gravidarum, Acute urinary tract infection, Left ovarian cyst Abdominal pain in Qualifiers: Trimester: first trimester Qualified Code(s): O26.891 - Other specified related conditions, first trimester; R10.9 - Unspecified abdominal pain Disposition: TO HOME OR SELFCARE Is pt being admited?: No Does the pt Need Aspirin: No Condition: Stable Instructions: Urinary Tract Infection in Women (ED), Hyperemesis Gravidarum (ED), Abdominal Pain in (ED) Additional Instructions: Maintain and a clear liquid diet for 12-24 hours, maintain a complete pelvic rest for the next 7-10 days or until followed up by the SENIOR ANALYST physician. Take medications with food, drink plenty of fluids and follow-up with your SENIOR ANALYST physician in 7-10 days for reevaluation. Return to the ED immediately if symptoms get worse. Prescriptions: Acetaminophen [Tylenol] 500 mg PO Q6HR PRN #30 tablet PRN Reason: Pain , Severe (7-10) cephALEXin [Keflex] 500 mg PO Q6HR #40 capsule Famotidine [Pepcid] 20 mg PO Q12H #30 tablet Promethazine [Phenergan] 25 mg PO Q6HR PRN #30 tab PRN Reason: Nausea Promethazine HCl [Phenergan SUPPOS] 25 mg RC Q6H PRN #20 supp.rect PRN Reason: Nausea Referrals: KIMMIE LAMB MD [Staff Physician] - 3-5 Days Forms: Work/School Release Form(ED) Time of Disposition: 05:50 Print Language: PU[place] RICAN
== END 2019-07-28 06:11 | disposition home or self-care (01) ==
LOC: ED 20:36
DX: O21.0 Mild hyperemesis gravidarum (principal); O34.81 Maternal care for other abnormalities of pelvic organs, first trimester; N83.292 Other ovarian cyst, left side; O23.31 Infections of other parts of urinary tract in pregnancy, first trimester; Z3A.01 Less than 8 weeks gestation of pregnancy; Z79.899 Other long term (current) drug therapy
CPT/HCPCS: 36415; 76801; 76817; 80053; 81001; 84702; 85025; 87086; 96361; 96374; 96375; 99284; J2405; J7030

== ENCOUNTER 2019-09-01 14:23 | Emergency (ER) | payer MEDICAID ==
[2019-09-01 16:05] VITALS: BP 117/66
--- NOTE | 2019-09-01 16:15 | Emergency Department Report ---
Blank Doc - Documentation Documentation: 19-year-old female that presents with abdominal pain s/p fall. Stated is 12 w eeks . Denies any vaignla bleeding or any other complaints. This initial assessment/diagnostic orders/clinical plan/treatment(s) is/are subject to change based on patient's health status, clinical progression and re- assessment by fellow clinical providers in the ED. Further treatment and workup at subsequent clinical providers discretion. Patient/guardians urged not to elope from the ED as their condition may be serious if not clinically assessed and managed. Initial orders include: 1- Patient sent to [facility] for further evaluation and treatment 2- US OB 3- labs 4- UA
[2019-09-01 16:50] LABS: Bacteria,Urine 1+ /HPF (Negative); Bilirubin,Urine NEG (Negative); Blood,Urine NEG (Negative); Color,Urine Yellow (Yellow); Mucus,Urine 3+ /HPF; Protein,Urine <15 mg/dL mg/dL (Negative); Urobilinogen,Urine < 2.0 mg/dL (<2.0)
[2019-09-01 17:53] LABS: Basophils % (Auto) 0.3 % (0.0-1.8); Eosinophils # (Auto) 0.2 K/mm3 (0.0-0.4); Hematocrit 41.1 % (30.3-42.9); Hemoglobin 13.8 gm/dl (10.1-14.3); Lymphocytes # (Auto) 2.7 K/mm3 (1.2-5.4); Lymphocytes % (Auto) 23.6 % (13.4-35.0); Mean Corpuscular HGB Conc 34 % (30-34); Mean Corpuscular Volume 87 fl (79-97); Monocytes # (Auto) 0.5 K/mm3 (0.0-0.8); Monocytes % (Auto) 4.3 % (0.0-7.3); Platelet Count 199 K/mm3 (140-440); Red Blood Count 4.73 M/mm3 (3.65-5.03); Red Cell Distribution Width 16.2 % (13.2-15.2)
[2019-09-01 18:21] LABS: BUN/Creatinine Ratio 23; Blood Urea Nitrogen 9 mg/dL (7-17); Calcium 9.4 mg/dL (8.4-10.2); Hemolysis Index 7
--- NOTE | 2019-09-01 18:52 | Ultrasound Report ---
US OB <= 14 weeks fetus INDICATION / CLINICAL INFORMATION: pain s/p fall. COMPARISON: None available. FINDINGS: Intrauterine gestational sac is noted with pole. [place]-rump length is 5.2 cm (11 weeks, 6 days) . heart rate is 168 bpm. No free fluid is seen. There is a fundal placenta. Subcentimeter echogenic focus in the cervix could be a dystrophic calcifi cation. Right ovary is not visualized. Left ovary contains a 1.6 cm cyst. IMPRESSION: 1. Single viable intrauterine with sonographic gestational age of 11 weeks, 6 days. Signer Name: Jj Baldwin MD Signed: 09/01/2019 6:48 PM Workstation Name: [id number]
--- NOTE | 2019-09-01 19:39 | Emergency Department Report ---
ED Abdominal Pain HPI - General Chief Complaint: Fall Stated Complaint: FALL/12 WKS Time Seen by Provider: 09/01/19 16:14 Source: patient Mode of arrival: Ambulatory Limitations: No Limitations - History of Present Illness Initial Comments: Ms. Hurt is a 19-year-old female that presents with abdominal pain s/p fall this a.m. slipped in her living room. Stated is 12 weeks . And having abdominal pains and cramping. Noted some intermittent spotting over the past 3 weeks. She does have [facility]. There is no vaginal bleeding at this time. Abdominal cramps rated at 3/10. There is no nausea vomitin. There are no abrasions, no lacerations, no bleeding patient denies other injury. , MD Complaint: abdominal pain Onset/Timin -: hour(s) Location: LLQ, RLQ Radiation: LLQ, RLQ Migration to: suprapubic Severity: moderate Severity scale (0 -10): 3 Quality: cramping Consistency: intermittent Improves With: nothing Worsens With: nothing Associated Symptoms: denies other symptoms - Related Data LMP Date: 06/02/19 Previous Rx's Medication Instructions Recorded Last Taken Type Ondansetron [Zofran Odt] 4 mg PO Q8HR PRN #10 tab.rapdis 02/01/19 Unknown Rx Phenazopyridine [Pyridium] 200 mg PO BID PRN #10 tab 02/01/19 Unknown Rx Benzonatate [Tessalon Perles] 100 mg PO Q8HR PRN #20 capsule 02/08/19 Unknown Rx Naproxen [Naprosyn] 500 mg PO BID #20 tablet 02/08/19 Unknown Rx Ondansetron [Zofran Odt] 4 mg PO Q8HR PRN #20 tab.rapdis 02/08/19 Unknown Rx Ibuprofen [Motrin] 600 mg PO Q8H PRN #20 tablet 03/22/19 Unknown Rx cephALEXin [Keflex] 500 mg PO Q8HR #30 cap 03/22/19 Unknown Rx Acetaminophen [Tylenol] 500 mg PO Q6HR PRN #30 tablet 07/28/19 Unknown Rx Famotidine [Pepcid] 20 mg PO Q12H #30 tablet 07/28/19 Unknown Rx Promethazine HCl [Phenergan SUPPOS] 25 mg RC Q6H PRN #20 supp.rect 07/28/19 Unknown Rx Promethazine [Phenergan] 25 mg PO Q6HR PRN #30 tab 07/28/19 Unknown Rx cephALEXin [Keflex] 500 mg PO Q6HR #40 capsule 07/28/19 Unknown Rx Acetaminophen [Tylenol] 650 mg PO Q6H PRN #30 capsule 09/01/19 Unknown Rx cephALEXin [Keflex] 500 mg PO BID 7 Days #14 cap 09/01/19 Unknown Rx Allergies Allergy/AdvReac Type Severity Reaction Status Date / Time No Known Allergies Allergy Verified 02/08/19 18:49 ED Review of Systems ROS: Stated complaint: FALL/ WKS Other details as noted in HPI Constitutional: denies: chills, fever Eyes: denies: eye pain, eye discharge, vision change ENT: denies: ear pain, throat pain Respiratory: no symptoms reported Cardiovascular: denies: chest pain, palpitations Endocrine: no symptoms reported Gastrointestinal: abdominal pain. denies: nausea, vomiting, diarrhea, constipation, hematemesis, melena Genitourinary: denies: urgency, dysuria, discharge Musculoskeletal: denies: back pain, joint swelling, arthralgia Skin: denies: rash, lesions Neurological: denies: headache, weakness, paresthesias Psychiatric: denies: anxiety, depression Hematological/Lymphatic: denies: easy bleeding, easy bruising ED Past Medical Hx - Past Medical History Previous Medical History?: No Hx Hypertension: No Hx Diabetes: No Hx Deep Vein Thrombosis: No Hx Renal Disease: No Hx Sickle Cell Disease: No Hx Seizures: No Hx Asthma: No Hx HIV: No - Surgical History Past Surgical History?: No - Social History Smoking Status: Never Smoker Substance Use Type: None - Medications Home Medications: Home Medications Medication Instructions Recorded Confirmed Last Taken Type Ondansetron [Zofran Odt] 4 mg PO Q8HR PRN #10 tab.rapdis 02/01/19 Unknown Rx Phenazopyridine [Pyridium] 200 mg PO BID PRN #10 tab 02/01/19 Unknown Rx Benzonatate [Tessalon Perles] 100 mg PO Q8HR PRN #20 capsule 02/08/19 Unknown Rx Naproxen [Naprosyn] 500 mg PO BID #20 tablet 02/08/19 Unknown Rx Ondansetron [Zofran Odt] 4 mg PO Q8HR PRN #20 tab.rapdis 02/08/19 Unknown Rx Ibuprofen [Motrin] 600 mg PO Q8H PRN #20 tablet 03/22/19 Unknown Rx cephALEXin [Keflex] 500 mg PO Q8HR #30 cap 03/22/19 Unknown Rx Acetaminophen [Tylenol] 500 mg PO Q6HR PRN #30 tablet 07/28/19 Unknown Rx Famotidine [Pepcid] 20 mg PO Q12H #30 tablet 07/28/19 Unknown Rx Promethazine HCl [Phenergan SUPPOS] 25 mg RC Q6H PRN #20 supp.rect 07/28/19 Unknown Rx Promethazine [Phenergan] 25 mg PO Q6HR PRN #30 tab 07/28/19 Unknown Rx cephALEXin [Keflex] 500 mg PO Q6HR #40 capsule 07/28/19 Unknown Rx Acetaminophen [Tylenol] 650 mg PO Q6H PRN #30 capsule 09/01/19 Unknown Rx cephALEXin [Keflex] 500 mg PO BID 7 Days #14 cap 09/01/19 Unknown Rx ED Physical Exam - General Limitations: No Limitations General appearance: alert, in no apparent distress - Head Head exam: Present: atraumatic, normocephalic, normal inspection - Eye Eye exam: Present: normal appearance, PERRL, EOMI - ENT ENT exam: Present: mucous membranes moist - Neck Neck exam: Present: normal inspection, full ROM. Absent: tenderness, meningismus, lymphadenopathy, thyromegaly - Respiratory Respiratory exam: Present: normal lung sounds bilaterally. Absent: respiratory distress, wheezes, stridor, chest wall tenderness - Cardiovascular Cardiovascular Exam: Present: regular rate, normal rhythm, normal heart sounds. Absent: systolic murmur, diastolic murmur, rubs, gallop - GI/Abdominal GI/Abdominal exam: Present: soft, normal bowel sounds. Absent: distended, tenderness, guarding, rebound, rigid, bruit, hernia - Rectal Rectal exam: Present: deferred - External exam: Present: other (pt declines vaginal exam deferres to obgyn ) - Extremities Exam Extremities exam: Present: normal inspection - Back Exam Back exam: Present: normal inspection, full ROM. Absent: tenderness, CVA tenderness (R), CVA tenderness (L), vertebral tenderness - Neurological Exam Neurological exam: Present: alert, oriented X3, CN II-XII intact, normal gait, r eflexes normal. Absent: motor sensory deficit - Psychiatric Psychiatric exam: Present: normal affect, normal mood - Skin Skin exam: Present: warm, dry, intact, normal color. Absent: rash ED Course Vital Signs 09/01/19 16:03 Temperature 98.1 F Pulse Rate 67 Respiratory 18 Rate Blood Pressure 117/66 O2 Sat by Pulse 99 Oximetry ED Medical Decision Making - Lab Data Result diagrams: 09/01/19 16:28 09/01/19 16:28 Labs 09/01/19 09/01/19 09/01/19 16:28 16:28 16:28 WBC 11.5 H RBC 4.73 Hgb 13.8 Hct 41.1 MCV 87 MCH 29 MCHC 34 RDW 16.2 H Plt Count 199 Lymph % (Auto) 23.6 [place] % (Auto) 4.3 Eos % (Auto) 2.0 Baso % (Auto) 0.3 Lymph # 2.7 [place] # 0.5 Eos # 0.2 Baso # 0.0 Seg Neutrophils % 69.8 Seg Neutrophils # 8.0 H Sodium 137 Potassium 3.9 Chloride 100.6 Carbon Dioxide 20 L Anion Gap 20 BUN 9 Creatinine 0.4 L Estimated GFR > 60 BUN/Creatinine Ratio 23 Glucose 74 Calcium 9.4 HCG, Quant [id number] H Urine Color Urine Turbidity Urine pH Ur Specific [place] Urine Protein Urine Glucose (UA) Urine Ketones Urine Blood Urine Nitrite Urine Bilirubin Urine Urobilinogen Ur Leukocyte Esterase Urine WBC (Auto) Urine RBC (Auto) U Epithel Cells (Auto) Urine Bacteria (Auto) Urine Mucus 09/01/19 16:33 WBC RBC Hgb Hct MCV MCH MCHC RDW Plt Count Lymph % (Auto) [place] % (Auto) Eos % (Auto) Baso % (Auto) Lymph # [place] # Eos # Baso # Seg Neutrophils % Seg Neutrophils # Sodium Potassium Chloride Carbon Dioxide Anion Gap BUN Creatinine Estimated GFR BUN/Creatinine Ratio Glucose Calcium HCG, Quant Urine Color Yellow Urine Turbidity Slightly-cloudy Urine pH 7.0 Ur Specific [place] 1.024 Urine Protein <15 mg/dl Urine Glucose (UA) Neg Urine Ketones Tr Urine Blood Neg Urine Nitrite Neg Urine Bilirubin Neg Urine Urobilinogen < 2.0 Ur Leukocyte Esterase Sm Urine WBC (Auto) 10.0 H Urine RBC (Auto) 2.0 U Epithel Cells (Auto) 9.0 Urine Bacteria (Auto) 1+ Urine Mucus 3+ - Radiology Data Radiology results: report reviewed, image reviewed Findings [facility] [address] [place] [address] Ultrasound Report Signed Patient: BLAISE HURT MR#: [id number] : 2000 Acct:[id number] Age/Sex: 19 / F ADM Date: 09/01/19 Loc: ED Attending Dr: Ordering Physician: CATALINA SULLIVAN NP Date of Service: 09/01/19 Procedure(s): US OB <= 14 weeks fetus Accession Number(s): [id number] cc: CATALINA SULLIVAN NP US OB <= 14 weeks fetus INDICATION / CLINICAL INFORMATION: pain s/p fall. COMPARISON: None available. FINDINGS: Intrauterine gestational sac is noted with pole. Schneider-rump length is 5.2 cm (11 weeks, 6 days). heart rate is 168 bpm. No free fluid is seen. There is a fundal placenta. Subcentimeter echogenic focus in the cervix could be a dystrophic calcification. Right ovary is not visualized. Left ovary contains a 1.6 cm cyst. IMPRESSION: 1. Single viable intrauterine with sonographic gestational age of 11 weeks, 6 days. Signer Name: Jj Baldwin MD Signed: 09/01/2019 6:48 PM Workstation Name: [id number] Transcribed By: HERNAN Dictated By: Jj Baldwin MD Electronically Authenticated By: Jj Baldwin MD Signed Date/Time: 09/01/191847 DD/ 45 TD/TT: - Medical Decision Making Ultrasound single IUP 11 weeks and 6 days heart rate is 16 this 2 bpm. Pt declines vaginal exam , denies bleeding at this time. UA noted positive for leuks some bacteria, will treat for UTI patient denies concerns for STI. kShe will follow with [facility] in 2 to 3 days. patient verbalizes agreement and understanding of discharge plan will be DC'd home in stable condition at this time Critical care attestation.: If time is entered above; I have spent that time in minutes in the direct care of this critically ill patient, excluding procedure time. ED Disposition Clinical Impression: Vaginal bleeding affecting early Fall Qualifiers: Encounter type: initial encounter Qualified Code(s): W19.XXXA - Unspecified fall, initial encounter UTI (urinary tract infection) during Qualifiers: Trimester: first trimester Qualified Code(s): O23.41 - Unspecified infection of urinary tract in , first trimester Disposition: TO HOME OR SELFCARE Is pt being admited?: No Does the pt Need Aspirin: No Condition: Stable Instructions: Urinary Tract Infection in Women (ED), (ED), Threatened Miscarriage (ED) Prescriptions: cephALEXin [Keflex] 500 mg PO BID 7 Days #14 cap Acetaminophen [Tylenol] 650 mg PO Q6H PRN #30 capsule PRN Reason: pain Referrals: [facility] [Provider Group] - 2-3 Days Forms: Work/School Release Form(ED) Time of Disposition: 19:46
== END 2019-09-01 19:55 | disposition home or self-care (01) ==
LOC: ED 14:23
DX: O23.41 Unspecified infection of urinary tract in pregnancy, first trimester (principal); O20.8 Other hemorrhage in early pregnancy; Z79.899 Other long term (current) drug therapy; W01.0XXA Fall on same level from slipping, tripping and stumbling without subsequent striking against object, initial encounter; Y93.89 Activity, other specified; Y92.89 Other specified places as the place of occurrence of the external cause; Y99.8 Other external cause status
CPT/HCPCS: 36415; 76801; 80048; 81001; 84702; 85025; 87086

== ENCOUNTER 2019-10-24 14:17 | Emergency (ER) | payer MEDICAID ==
[2019-10-24 14:26] VITALS: BP 114/65
[2019-10-24 15:08] LABS: Bacteria,Urine 4+ /HPF (Negative); Bilirubin,Urine NEG (Negative); Blood,Urine NEG (Negative); Color,Urine Yellow (Yellow); Mucus,Urine 3+ /HPF
[2019-10-24 15:11] LABS: Basophils # (Auto) 0.1 K/mm3 (0.0-0.1); Basophils % (Auto) 0.5 % (0.0-1.8); Eosinophils # (Auto) 0.5 K/mm3 (0.0-0.4); Hematocrit 36.6 % (30.3-42.9); Hemoglobin 12.3 gm/dl (10.1-14.3); Lymphocytes # (Auto) 2.2 K/mm3 (1.2-5.4); Lymphocytes % (Auto) 21.5 % (13.4-35.0); Mean Corpuscular HGB Conc 34 % (30-34); Mean Corpuscular Volume 89 fl (79-97); Monocytes # (Auto) 0.5 K/mm3 (0.0-0.8); Monocytes % (Auto) 4.6 % (0.0-7.3); Platelet Count 147 K/mm3 (140-440); Red Blood Count 4.12 M/mm3 (3.65-5.03); Red Cell Distribution Width 13.8 % (13.2-15.2)
--- NOTE | 2019-10-24 15:21 | Emergency Department Report ---
ED HPI - General Chief complaint: Fall Stated complaint: FALL Time Seen by Provider: 10/24/19 14:28 Source: patient Mode of arrival: Ambulatory Limitations: No Limitations - History of Present Illness Initial comments: This is a 19-year-old female who is 19.5 weels nontoxic, well nourished in appearance, no acute signs of distress presents to the ED with c/o of vaginal spotting and pelvic pain x2 hours. Patient stated that she had a ground level trip and fall and landed on her stomach. Patient stated vaginal spotting is less then 1 pad and denies any vaginal bleeding right now. Patient denies any abdominal pain. Patient denies any vaginal discharge or foul odor. Denies any neck or back pains. Patient denies any nausea, vomiting, chest pain, shortness of breathe, fever, chills, headache, stiff neck, numbness, tingling. Patient denies any urinary symptoms. Patient denies any allergies or PMH. MD Complaint: vaginal bleeding, other -: This afternoon Location: pelvis Radiation: none Severity: mild Severity scale (0 -10): 3 Quality: cramping, aching Consistency: constant Improves with: none Worsens with: none Associated symptoms: vaginal bleeding. denies: nausea/vomiting, vaginal discharge, abdominal pain, dysuria, headache, vision changes, malaise, dysparuenia, rash, seizure, shortness of breath, syncope, weakness Vaginal bleeding: light :: Yes Number of weeks : 19 - Related Data Previous Rx's Medication Instructions Recorded Last Taken Type Ondansetron [Zofran Odt] 4 mg PO Q8HR PRN #10 tab.rapdis 02/01/19 Unknown Rx Phenazopyridine [Pyridium] 200 mg PO BID PRN #10 tab 02/01/19 Unknown Rx Benzonatate [Tessalon Perles] 100 mg PO Q8HR PRN #20 capsule 02/08/19 Unknown Rx Naproxen [Naprosyn] 500 mg PO BID #20 tablet 02/08/19 Unknown Rx Ondansetron [Zofran Odt] 4 mg PO Q8HR PRN #20 tab.rapdis 02/08/19 Unknown Rx Ibuprofen [Motrin] 600 mg PO Q8H PRN #20 tablet 03/22/19 Unknown Rx cephALEXin [Keflex] 500 mg PO Q8HR #30 cap 03/22/19 Unknown Rx Acetaminophen [Tylenol] 500 mg PO Q6HR PRN #30 tablet 07/28/19 Unknown Rx Famotidine [Pepcid] 20 mg PO Q12H #30 tablet 07/28/19 Unknown Rx Promethazine HCl [Phenergan SUPPOS] 25 mg RC Q6H PRN #20 supp.rect 07/28/19 Unknown Rx Promethazine [Phenergan] 25 mg PO Q6HR PRN #30 tab 07/28/19 Unknown Rx cephALEXin [Keflex] 500 mg PO Q6HR #40 capsule 07/28/19 Unknown Rx Acetaminophen [Tylenol] 650 mg PO Q6H PRN #30 capsule 09/01/19 Unknown Rx cephALEXin [Keflex] 500 mg PO BID 7 Days #14 cap 09/01/19 Unknown Rx Allergies Allergy/AdvReac Type Severity Reaction Status Date / Time No Known Allergies Allergy Verified 02/08/19 18:49 ED Review of Systems ROS: Stated complaint: FALL Other details as noted in HPI Constitutional: denies: chills, fever Eyes: denies: eye pain, eye discharge, vision change ENT: denies: ear pain, throat pain Respiratory: denies: cough, shortness of breath, wheezing Cardiovascular: denies: chest pain, palpitations Endocrine: no symptoms reported Gastrointestinal: denies: abdominal pain, nausea, diarrhea Genitourinary: abnormal menses. denies: urgency, dysuria, discharge Musculoskeletal: denies: back pain, joint swelling, arthralgia Skin: denies: rash, lesions Neurological: denies: headache, weakness, paresthesias Psychiatric: denies: anxiety, depression Hematological/Lymphatic: denies: easy bleeding, easy bruising ED Past Medical Hx - Past Medical History Hx Hypertension: No Hx Diabetes: No Hx Deep Vein Thrombosis: No Hx Renal Disease: No Hx Sickle Cell Disease: No Hx Seizures: No Hx Asthma: No Hx HIV: No - Social History Smoking Status: Never Smoker Substance Use Type: None - Medications Home Medications: Home Medications Medication Instructions Recorded Confirmed Last Taken Type Ondansetron [Zofran Odt] 4 mg PO Q8HR PRN #10 tab.rapdis 02/01/19 Unknown Rx Phenazopyridine [Pyridium] 200 mg PO BID PRN #10 tab 02/01/19 Unknown Rx Benzonatate [Tessalon Perles] 100 mg PO Q8HR PRN #20 capsule 02/08/19 Unknown Rx Naproxen [Naprosyn] 500 mg PO BID #20 tablet 02/08/19 Unknown Rx Ondansetron [Zofran Odt] 4 mg PO Q8HR PRN #20 tab.rapdis 02/08/19 Unknown Rx Ibuprofen [Motrin] 600 mg PO Q8H PRN #20 tablet 03/22/19 Unknown Rx cephALEXin [Keflex] 500 mg PO Q8HR #30 cap 03/22/19 Unknown Rx Acetaminophen [Tylenol] 500 mg PO Q6HR PRN #30 tablet 07/28/19 Unknown Rx Famotidine [Pepcid] 20 mg PO Q12H #30 tablet 07/28/19 Unknown Rx Promethazine HCl [Phenergan SUPPOS] 25 mg RC Q6H PRN #20 supp.rect 07/28/19 Unknown Rx Promethazine [Phenergan] 25 mg PO Q6HR PRN #30 tab 07/28/19 Unknown Rx cephALEXin [Keflex] 500 mg PO Q6HR #40 capsule 07/28/19 Unknown Rx Acetaminophen [Tylenol] 650 mg PO Q6H PRN #30 capsule 09/01/19 Unknown Rx cephALEXin [Keflex] 500 mg PO BID 7 Days #14 cap 09/01/19 Unknown Rx ED Physical Exam - General Limitations: No Limitations General appearance: alert, in no apparent distress - Head Head exam: Present: atraumatic, normocephalic - Eye Eye exam: Present: normal appearance - Neck Neck exam: Present: normal inspection, full ROM. Absent: tenderness, me ningismus, lymphadenopathy - Respiratory Respiratory exam: Present: normal lung sounds bilaterally. Absent: respiratory distress, wheezes, rales, rhonchi, stridor, chest wall tenderness, accessory muscle use, decreased breath sounds, prolonged expiratory - Cardiovascular Cardiovascular Exam: Present: regular rate, normal rhythm, normal heart sounds. Absent: irregular rhythm, systolic murmur, diastolic murmur, rubs, gallop - GI/Abdominal GI/Abdominal exam: Present: soft, normal bowel sounds. Absent: distended, tenderness, guarding, rebound, rigid, diminished bowel sounds - Extremities Exam Extremities exam: Present: normal inspection, full ROM - Back Exam Back exam: Present: normal inspection, full ROM. Absent: tenderness, CVA tenderness (R), CVA tenderness (L), muscle spasm, paraspinal tenderness, vertebral tenderness, rash noted - Neurological Exam Neurological exam: Present: alert, oriented X3, normal gait - Psychiatric Psychiatric exam: Present: normal affect, normal mood - Skin Skin exam: Present: warm, dry, intact, normal color. Absent: rash ED Course Vital Signs 10/24/19 14:24 Temperature 98.6 F Pulse Rate 104 H Respiratory 18 Rate Blood Pressure 114/65 O2 Sat by Pulse 98 Oximetry - Reevaluation(s) Reevaluation #1: 10/24/19 15:23 Patient is speaking in full sentences with no signs of distress noted. ED Medical Decision Making - Lab Data Result diagrams: 10/24/19 15:00 - Medical Decision Making This is a 19-year-old female presents with threatened miscarriage. Patient is stable and was examined by me. Normal abdominal exam. US OB obtained and dict ated by the radiologist. Ua obtained. Quantative serum test obtained. Patient notified of the US report with no questions noted by the patient. Patient was instructed f/u with [facility]PAIR[facility] in 3-5 days. RH factor positive. Labs within normal limits. Patient was given strict precautions and education on ectopic . At time of discharge, the patient does not seem toxic or ill in appearance. No acute signs of distress noted. Patient agrees to discharge treatment plan of care. No further questions noted by the patient. Critical care attestation.: If time is entered above; I have spent that time in minutes in the direct care of this critically ill patient, excluding procedure time. ED Disposition Clinical Impression: Threatened miscarriage Fall Qualifiers: Encounter type: initial encounter Qualified Code(s): W19.XXXA - Unspecified fall, initial encounter Disposition: DC-01 TO HOME OR SELFCARE Is pt being admited?: No Does the pt Need Aspirin: No Condition: Stable Instructions: Threatened Miscarriage (ED) Additional Instructions: Follow-up with a [facility] doctor in 3-5 days or if symptoms worsen and continue return to emergency room as soon as possible. Referrals: [facility]IMARY [facility], [Primary Care Provider] - 3-5 Days MARCIO MASSEY MD [Staff Physician] - 3-5 Days [facility] [Provider [facility]] - 3-5 Days
--- NOTE | 2019-10-24 16:15 | Ultrasound Report ---
To be ultrasound FINDINGS: Single fetus is identified in vertex presentation. heart rate is 166 bpm. Appropriate measurements reveal an MA of 19 weeks 6 days for an EDC of 03/13/2020. This correlates with the clini sherman dates. Placenta is posterior and fundal and free of the os. Cervix measures 2.6 cm in length. No definite anomalies are seen. Maximum vertical pocket is 3.8 cm of fluid. Signer Name: Kenneth Alston MD Signed: 10/24/2019 4:10 PM Workstation Name: [id number]
== END 2019-10-24 17:00 | disposition home or self-care (01) ==
LOC: ED 14:17
DX: O20.0 Threatened abortion (principal); Z79.899 Other long term (current) drug therapy; Z3A.19 19 weeks gestation of pregnancy
CPT/HCPCS: 36415; 76805; 81001; 84702; 85025; 86900; 86901; 87086

== ENCOUNTER 2019-11-11 15:19 | Outpatient (CLI) | payer MEDICAID ==
[2019-11-11 15:41] VITALS: BP 111/66
[2019-11-11] MEDS ORDERED: LACTATED RINGERS 500 ML IV ONE (15:50)
[2019-11-11 16:56] LABS: Bacteria,Urine 2+ /HPF (Negative); Bilirubin,Urine NEG (Negative); Blood,Urine NEG (Negative); Color,Urine Yellow (Yellow); Mucus,Urine 1+ /HPF; Protein,Urine <15 mg/dL mg/dL (Negative); Urobilinogen,Urine < 2.0 mg/dL (<2.0)
--- NOTE | 2019-11-11 18:22 | Ultrasound Report ---
ULTRASOUND OBSTETRIC LIMITED INDICATION / CLINICAL INFORMATION: abd. pressure. TECHNIQUE: Transabdominal ultrasound imaging. COMPARISON: 10/24/2019 prior ultrasound FINDINGS: HEART RATE (beats per minute): 141 AMNIOTIC FLUID INDEX (cm) = not measured but subjectively within normal limits. PRESENTATION: Cephalic. ADDITIONAL FINDINGS: Placenta is located posteriorly with a grade of 1. No evidence of previa or abruption. IMPRESSION: Single viable IUP in a cephalic presentation. The placenta is unremarkable at this time. Signer Name: Danyelle Aleman MD Signed: 11/11/2019 6:17 PM Workstation Name: [id number]
== END 2019-11-11 18:40 | disposition home or self-care (01) ==
LOC: TRG 15:19 → APU 15:27 → TRG 18:40
PROVIDERS: ATTEND Obstetrics & Gynecology
DX: O47.02 False labor before 37 completed weeks of gestation, second trimester (principal); Z3A.22 22 weeks gestation of pregnancy
CPT/HCPCS: 59025; 76815; 81001

== ENCOUNTER 2019-11-20 14:38 | Outpatient (CLI) | payer MEDICAID ==
[2019-11-23 12:02] VITALS: BP 109/61
== END 2019-11-20 16:11 | disposition home or self-care (01) ==
LOC: TRG 14:38 → APU 14:42 → TRG 16:11
PROVIDERS: ATTEND Obstetrics & Gynecology
DX: O26.892 Other specified pregnancy related conditions, second trimester (principal); R10.2 Pelvic and perineal pain; Z3A.23 23 weeks gestation of pregnancy
CPT/HCPCS: 59025